=== PATIENT | female | born 1965 | race Caucasian/White ===

== ENCOUNTER 2018-01-05 17:10 | Emergency (ER) | payer OTHER ==
[2018-01-05 17:54] VITALS: BP 180/85
--- NOTE | 2018-01-05 18:05 | UC ---
Respiratory Complaint HPI - HPI Summary HPI Summary: 52 yo female with sinus pressure and pain/nasal congestion and cough x >2 weeks getting worse some chills some dental pain - History of Current Complaint Chief Complaint: UCRespiratory Stated Complaint: SINUS COMP Time Seen by Provider: 01/05/18 17:58 Hx Obtained From: Patient Hx Last Menstrual Period: IUD Onset/Duration: Gradual Onset, Lasting Weeks Timing: Constant Severity Initially: Mild Severity Currently: Moderate Pain Intensity: 4 Pain Scale Used: 0-10 Numeric Character: Cough: Nonproductive Aggravating Factors: Nothing Alleviating Factors: Nothing Associated Signs And Symptoms: Positive: Chills, Nasal Congestion, Sinus Discomfort - Allergies/Home Medications Allergies/Adverse Reactions: Allergies Allergy/AdvReac Type Severity Reaction Status Date / Time Sulfa (Sulfonamide Allergy Intermediate See Comment Verified 01/05/18 17:41 Antibiotics) Home Medications: Home Medications Ezetimibe TAB* [Zetia TAB*] 10 mg BEDTIME 01/05/18 [History Confirmed 01/05/18] FLUoxetine CAP* [Prozac CAP*] 20 mg DAILY 01/05/18 [History Confirmed 01/05/18] L.acidoph,Paracasei, B.lactis [Probiotic] 1 cap BID 01/05/18 [History Confirmed 01/05/18] Lisinopril TAB* [Prinivil TAB*] 10 mg PO DAILY 01/05/18 [History Confirmed 01/05] Methylcellulose [Citrucel] 1 tab BID 01/05/18 [History Confirmed 01/05/18] Metoprolol Tartrate TAB* [Lopressor TAB*] 50 mg BID 01/05/18 [History Confirmed 01/05/18] Multivitamin [Multivitamins] 1 tab DAILY 01/05/18 [History Confirmed 01/05/18] Primidone TAB(*) [Mysoline TAB(*)] 750 mg PO BEDTIME 01/05/18 [History Confirmed 01/05/18] Sitagliptin Phosphate [Januvia] 100 mg PO DAILY 01/05/18 [History Confirmed ] buPROPion TAB* [Wellbutrin TAB*] 75 mg PO DAILY 01/05/18 [History Confirmed ] PMH/Surg Hx/FS Hx/Imm Hx Previously Healthy: Yes Endocrine History: Diabetes Cardiovascular History: Hypertension - Surgical History Surgical History: Yes Surgery Procedure, Year, and Place: x1. 1989' PERIANAL FISTULA SURGERY. Oct 2017 D/C and biopsy - Family History Known Family History: Positive: Hypertension - Social History Alcohol Use: None Substance Use Type: None Smoking Status (MU): Never Smoked Tobacco Review of Systems Constitutional: Chills, Fatigue Skin: Negative Eyes: Negative ENT: Dental Pain, Ear Ache, Nasal Discharge, Sinus Congestion, Sinus Pain/ Tenderness Respiratory: Cough Cardiovascular: Negative Gastrointestinal: Negative Genitourinary: Negative Motor: Negative Neurovascular: Negative Musculoskeletal: Negative Neurological: Headache Psychological: Negative All Other Systems Reviewed And Are Negative: Yes Physical Exam Triage Information Reviewed: Yes Appearance: Well-Appearing, No Pain Distress, Well-Nourished, Obese - BSA 57.5 Vital Signs: Initial Vital Signs Temp 98.3 F 01/05/18 17:45 Pulse 71 01/05/18 17:45 Resp 16 01/05/18 17:45 BP 180/85 01/05/18 17:45 Pulse Ox 97 01/05/18 17:45 Vital Signs Reviewed: Yes Eyes: Positive: Conjunctiva Clear ENT: Positive: Nasal congestion, Nasal drainage, Sinus tenderness, Uvula midline. Negative: Muffled voice Dental Exam: Normal Neck: Positive: Supple, Nontender, No Lymphadenopathy Respiratory: Positive: Lungs clear, Normal breath sounds, No respiratory distress, No accessory muscle use Cardiovascular: Positive: RRR Musculoskeletal: Positive: No Edema Neurological: Positive: Alert Psychological Exam: Normal Skin Exam: Normal UC Diagnostic Evaluation - Laboratory O2 Sat by Pulse Oximetry: 97 - normal/not hypoxic Respiratory Course/Dx - Differential Dx/Diagnosis Provider Diagnoses: acute sinusitis Discharge - Sign-Out/Discharge Documenting (check all that apply): Discharge - Discharge Plan Condition: Stable Disposition: HOME Prescriptions: Amoxicillin PO (*) [Amoxicillin 875 MG (*)] 875 mg PO BID #20 tab Patient Education Materials: Sinusitis (ED) Referrals: Alexa Viveros MD [Primary Care Provider] - 1 Week
== END 2018-01-05 18:15 | disposition home or self-care (01) ==
LOC: UCEAST 17:10 → UCCORT 17:10 → UCEAST 18:15
DX: J01.90 Acute sinusitis, unspecified (principal); Z88.2 Allergy status to sulfonamides; E11.9 Type 2 diabetes mellitus without complications; I10 Essential (primary) hypertension
CPT/HCPCS: 99212; G0463

== ENCOUNTER → 2018-03-16 13:00 | Emergency (ER) | payer OTHER ==
[~2018-03-16 13:00] MED LIST: Acetaminophen TAB* 325 MG PO ONE
[2018-03-16 15:01] LABS: ABS Basophils 0.1 10^3/ul (0-0.2); ABS Eosinophils 0.1 10^3/ul (0-0.6); ABS Monocytes 0.5 10^3/ul (0-0.8); ABS Neutrophils 7.1 10^3/ul (1.5-7.7); ABS Nucleated RBC 0 10^3/ul; Eosinophil % 1.2 % (0-6); Hematocrit 40 % (35-47); Hemoglobin 13.7 g/dl (12.0-16.0); Lymphocyte % 20.7 % (25-47); Mean Corpuscular HGB Conc 34 g/dl (31-36); Mean Corpuscular Hemoglobin 30 pg (27-31); Mean Corpuscular Volume 88 fL (80-97); Mean Platelet Volume 8.2 um3 (7.4-10.4); Nucleated Red Blood Cells % 0; Platelet Count 214 10^3/ul (150-450); Red Blood Count 4.52 10^6/ul (4.00-5.40); Red Cell Distribution Width 13 % (10.5-15); White Blood Count 9.9 10^3/ul (3.5-10.8)
[2018-03-16 15:20] LABS: EGFR Non-African American 85.1 (>60)
--- NOTE | 2018-03-16 15:38 | RAD ---
Indication: Vertigo. Irregular heart rate. Chest pain. Asthma. Comparison: No relevant prior exams available on the [facility] [place]. Technique: Upright AP 1510 hours Report: No focal pulmonary lesion, compelling alveolar consolidation, pleural effusion, pneumothorax. Cardiomegaly. Unremarkable central pulmonary vasculature and mediastinal contours. IMPRESSION: Cardiomegaly without compelling evidence for pulmonary edema. No acute cardiopulmonary process evident.
[2018-03-16 15:45] LABS: Urine Appearance Clear; Urine Blood Negative (Negative); Urine Color Straw; Urine Ketones Negative (Negative); Urine Protein Negative (Negative); Urine Specific Gravity 1.002 (1.010-1.030); Urine Urobilinogen Negative (Negative)
[2018-03-16 20:50] VITALS: BP 152/95
--- NOTE | 2018-03-22 14:47 | ED ---
Pat Herron Tenzin, scribed for Anish Jean MD on 03/16/18 at 1436 . Dizziness - HPI Summary HPI Summary: Pt is a 52 years old female BIBA to the ED complaining of experiencing vertigo while at work when she was walking back from the bathroom today. She reports that she had a 3-4 minutes long vertigo and sat down and drank a sweet juice. Pt notes that the vertigo is still there after she sat down from the walk in the chair before arrival of EMS. She reported that EMS checked her blood sugar and it was noted to be 130 mg/dl. She also reports that her medications were changed recently and she doubts that might be the cause of her vertigo. She said she saw PCP yesterday. She adds that all morning my head felt weird with dull KING but denies hx of migraines. She took her medications with juice this morning today but did not eat anything else. Since last month, pt notes that her Irregular heart beat that she had since she was in the 20s has recently gone from intermittent to more frequent. She reports that, last episode of Chest pain was 1/10 in severity and that was yesterday. She adds that it might have been gas. 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 Pt reports that she takes Claritin every day for her allergy that cause ear pain. She notes Claritin helps with ear ache. Pt denies Fever, Chills, Erythema (eyes), Sore throat, SOB, cough, abd pain, V/D, Dysuria, Hematuria, Myalgia, Edema, rash, change in appetite, problem with vision or trouble with speech. No aggravating or alleviating factors were noted. - History Of Current Complaint Chief Complaint: EDDizziness Stated Complaint: DIABETIC PROBLEM Time Seen by Provider: 03/16/18 13:49 Hx Obtained From: Patient Character: Room Spinning Aggravating Factor(s): Nothing Alleviating Factor(s): Nothing Associated Signs And Symptoms: Positive: Chest Pain, Other: - POSITIVE: VERTIGO.. Negative: Vomiting, Diarrhea, SOB, Visual Changes, Change In Diet, Fever, Chills - Allergies/Home Medications Allergies/Adverse Reactions: Allergies Allergy/AdvReac Type Severity Reaction Status Date / Time Sulfa (Sulfonamide Allergy Intermediate See Comment Verified 01/05/18 17:41 Antibiotics) Home Medications: Home Medications Calcium Citrate TAB* [Citracal TAB*] 200 mg PO BID 03/16/18 [History Confirmed 03/16/18] Lisinopril TAB* [Prinivil TAB 10 MG*] 20 mg PO DAILY 03/16/18 [History Confirmed 03/16/18] Metoprolol Tartrate TAB* [Lopressor TAB*] 100 mg PO BID 03/16/18 [History Confirmed 03/16/18] Multivitamins/Minerals TAB* [Theragran/minerals TAB*] 1 tab PO DAILY 03/16/18 [ History Confirmed 03/16/18] Rosuvastatin (NF) [Crestor (NF)] 20 mg PO SUSA 03/16/18 [History Confirmed 03/16] SitaGLIPtin (NF) [Januvia (NF)] 100 mg PO DAILY 03/16/18 [History Confirmed ] buPROPion TAB* [Wellbutrin TAB*] 75 mg PO DAILY 03/16/18 [History Confirmed ] PMH/Surg Hx/FS Hx/Imm Hx Endocrine/Hematology History: Reports: Hx Diabetes Cardiovascular History: Reports: Hx Hypertension Denies: Hx Pacemaker/ICD History: Denies: Hx Renal Disease Sensory History: Denies: Hx Hearing Aid Psychiatric History: Reports: Hx Panic Disorder - ANXIETY DISORDER - Surgical History Surgery Procedure, Year, and Place: x1. 1989'S PERIANAL FISTULA SURGERY. Oct 2017 D/C and biopsy Infectious Disease History: No Infectious Disease History: Denies: Traveled Outside the [place] in Last 30 Days - Family History Known Family History: Positive: Hypertension - Social History Alcohol Use: None Substance Use Type: Reports: None Smoking Status (MU): Never Smoked Tobacco Review of Systems Negative: Fever, Chills Negative: Erythema Positive: Ear Ache. Negative: Sore Throat Positive: Chest Pain Negative: Shortness Of Breath, Cough Negative: Abdominal Pain, Vomiting, Diarrhea Negative: dysuria, hematuria Negative: Myalgia, Edema Negative: Rash All Other Systems Reviewed And Are Negative: Yes Physical Exam - Summary Physical Exam Summary: Constitutional: Well-developed, Well-nourished, Alert. (-) Distressed Skin: Warm, Dry HENT: Normocephalic; Atraumatic Eyes: Conjunctiva normal Neck: Musculoskeletal ROM normal neck. (-) JVD, (-) Stridor, (-) Tracheal deviation Cardio: Rhythm regular, rate normal, Heart sounds normal; Intact distal pulses; The pedal pulses are 2+ and symmetric. Radial pulses are 2+ and symmetric. (-) Murmur Pulmonary/Chest wall: Effort normal. (-) Respiratory distress, (-) Wheezes, (-) Rales Abd: Soft, (-) Tenderness, (-) Distension, (-) Guarding, (-) Rebound Musculoskeletal: (-) Edema Lymph: (-) Cervical adenopathy Neuro: Alert, Oriented x3 Psych: Mood and affect Normal Triage Information Reviewed: Yes Vital Signs On Initial Exam: Initial Vitals Temp Pulse Resp BP Pulse Ox 98.6 F 72 18 152/98 97 03/16/18 14:14 03/16/18 14:14 03/16/18 14:14 03/16/18 14:14 03/16/18 14:14 Vital Signs Reviewed: Yes Diagnostics - Vital Signs Vital Signs Temp Pulse Resp BP Pulse Ox 03/16/18 14:14 98.6 F 72 18 152/98 97 - Laboratory Result Diagrams: 03/16/18 14:52 03/16/18 14:52 Lab Statement: Any lab studies that have been ordered have been reviewed, and results considered in the medical decision making process. - Radiology CHEST X RAY Radiology Interpretation Completed By: Radiologist - IMPRESSION: Cardiomegaly without compelling evidence for pulmonary edema. No acute cardiopulmonary process evident. - EKG 14:57 Cardiac Rate: NL - at 69 BPM EKG Interpretation: NON-STEMI Dizzy Course/Dx - Course Course Of Treatment: Pt is a 52 years old female BIBA to the ED complaining of experiencing vertigo while at work when she was walking back from the bathroom today. Bloodwork and UA is obtained. Chest X ray was taken. Pt has poor oral intake. Pt has adverse effect from meds. - Diagnoses Provider Diagnoses: Vertigo, Adverse effects of medication Discharge - Sign-Out/Discharge Documenting (check all that apply): Discharge/Admit/Transfer - Discharge - Discharge Plan Condition: Stable Disposition: HOME Patient Education Materials: Vertigo (ED) Forms: *Work Release Referrals: Alexa Viveros MD [Primary Care Provider] - 2 Days Additional Instructions: Follow up with your primary care physician in two to three days. Return to the emergency department for any new or worsening symptoms. The documentation as recorded by the Pat mcfarlane Tenzin accurately reflects the service I personally performed and the decisions made by me, Anish Jean MD.
== END | disposition home or self-care (01) ==
LOC: ED 13:00
DX: R42 Dizziness and giddiness (principal); T50.905A Adverse effect of unspecified drugs, medicaments and biological substances, initial encounter; E11.9 Type 2 diabetes mellitus without complications; I10 Essential (primary) hypertension; Z88.2 Allergy status to sulfonamides; I51.7 Cardiomegaly; I49.9 Cardiac arrhythmia, unspecified; Y92.9 Unspecified place or not applicable
CPT/HCPCS: 36415; 71045; 80053; 81003; 81015; 83605; 84439; 84443; 84484; 85025; 87086; 93005; 99283; A9270-GY